=== PATIENT | male | born 1975 | race African-American/Black ===

== ENCOUNTER 2021-04-19 05:41 | Emergency (ER) | payer MEDICAID ==
[~2021-04-19] VITALS: Ht 177.8 cm; Wt 84.1 kg
[2021-04-19 05:44] VITALS: BP 157/89
[2021-04-19] MEDS ORDERED: FLUORESCEIN SODIUM 1 MG STRIP OD ONE (06:30)
[2021-04-19] MEDS ORDERED: PROPARACAINE HCL 0.5% 15 ML OPHTHALMIC SOLUTION OD ONE (06:30)
[2021-04-19] MEDS ORDERED: ERYTHROMYCIN 0.5% 3.5 GM TUBE OPHTHALMIC OINTMENT OD ONE (07:00)
[2021-04-19] MEDS ORDERED: IBUPROFEN 600 MG TABLET PO ONE (07:00)
== END 2021-04-19 07:33 | disposition home or self-care (01) ==
LOC: EMS 05:47
DX: S05.01XA Injury of conjunctiva and corneal abrasion without foreign body, right eye, initial encounter (principal); F17.210 Nicotine dependence, cigarettes, uncomplicated; X58.XXXA Exposure to other specified factors, initial encounter; Y93.89 Activity, other specified; Y92.89 Other specified places as the place of occurrence of the external cause; Y99.8 Other external cause status
CPT/HCPCS: 99284; Z7502; Z7610

== ENCOUNTER 2023-08-16 11:45 | Emergency (ER) | payer MEDICAID, OTHER ==
[~2023-08-16] VITALS: Ht 180.3 cm; Wt 90.9 kg
[2023-08-16] MEDS ORDERED: SILD20TA PO (12:37)
[2023-08-16] MEDS ORDERED: OMEP20CA12 PO (12:37)
[2023-08-16] MEDS ORDERED: ADDE10 PO (12:37)
[2023-08-16] MEDS: IBUPROFEN 600 MG TABLET PO ONE ×2 (15:15→15:32)
[2023-08-16 15:33] VITALS: BP 148/101; PULSE 148; RESP 18; TEMP 98.6
== END 2023-08-16 15:39 | disposition home or self-care (01) ==
LOC: EMS 11:45
DX: S60.042A Contusion of left ring finger without damage to nail, initial encounter (principal); Z98.84 Bariatric surgery status; X58.XXXA Exposure to other specified factors, initial encounter; Y93.89 Activity, other specified; Y92.89 Other specified places as the place of occurrence of the external cause; Y99.8 Other external cause status
CPT/HCPCS: 11740; 99284; 73140-TC; Z7502; Z7610

== ENCOUNTER 2023-08-18 11:07 | Emergency (ER) | payer OTHER ==
[~2023-08-18] VITALS: Ht 177.8 cm; Wt 90.9 kg
[~2023-08-18 11:07] MED LIST: ADDE10 PO; OMEP20CA12 PO; SILD20TA PO
[2023-08-18 11:14] VITALS: TEMP 97.9
[2023-08-18 12:06] VITALS: BP 157/112; PULSE 82; RESP 16
== END 2023-08-18 12:13 | disposition home or self-care (01) ==
LOC: EMS 11:09
DX: S60.14 Contusion of ring finger with damage to nail (principal); I10 Essential (primary) hypertension; Z98.890 Other specified postprocedural states; X58.XXXD Exposure to other specified factors, subsequent encounter
CPT/HCPCS: 99281; Z7502

== ENCOUNTER 2024-02-27 12:07 | Emergency (ER) | payer OTHER ==
[~2024-02-27] VITALS: Ht 177.8 cm; Wt 90.9 kg
[~2024-02-27 12:07] MED LIST changes: -SILD20TA PO
[2024-02-27 12:16] VITALS: BP 155/96; PULSE 102; RESP 14; TEMP 98.3
[2024-02-27] MEDS: ACETAMINOPHEN 500 MG TABLET PO ONE (13:01)
[2024-02-27] MEDS: KETOROLAC TROMETHAMINE 30 MG/ML VIAL IM ONE (13:01)
[2024-02-27] MEDS: LIDOCAINE 5% TRANSDERMAL PATCH TD ONE (13:02)
[2024-02-27] MEDS ORDERED: LIDO700A15 TP (13:11)
[2024-02-27] MEDS ORDERED: IBUP-1492 PO (13:11)
[2024-02-27] MEDS ORDERED: ACET-3385 PO (13:11)
== END 2024-02-27 13:25 | disposition home or self-care (01) ==
LOC: EMS 12:07
DX: S39.012A Strain of muscle, fascia and tendon of lower back, initial encounter (principal); I10 Essential (primary) hypertension; Z98.890 Other specified postprocedural states; X50.0XXA Overexertion from strenuous movement or load, initial encounter; Y93.89 Activity, other specified; Y92.89 Other specified places as the place of occurrence of the external cause; Y99.8 Other external cause status
CPT/HCPCS: 99283; 96372; J1885

== ENCOUNTER 2024-09-06 08:23 | Emergency (ER) | payer OTHER ==
[~2024-09-06] VITALS: Ht 177.8 cm; Wt 86.4 kg
[~2024-09-06 08:23] MED LIST changes: +ACET-3385 PO; +IBUP-1492 PO; +LIDO700A15 TP
[2024-09-06 08:31] VITALS: TEMP 98.7
[2024-09-06] MEDS ORDERED: AMPH30TA3 PO (08:32)
[2024-09-06] MEDS: PERTUSS(ACELL),DIPH,TET/PF 0.5 ML SYRINGE [ADULT] IM. ONE (09:00)
[2024-09-06 09:06] LABS: BASOPHILS % (AUTO) 0.7 % (0.0-2.0); EOSINOPHILS % (AUTO) 1.9 % (1.0-6.0); HEMATOCRIT 45.7 % (41-53); HEMOGLOBIN 14.8 g/dL (13.5-17.5); LYMPHOCYTES # (AUTO) 1.4 K/uL (1.0-4.8); LYMPHOCYTES % (AUTO) 19.9 % (22.0-44.0); MEAN CORPUSCULAR HEMOGLOBIN 27.2 pg (26.0-34.0); MEAN CORPUSCULAR HGB CONC 32.5 G/dL (31.0-37.0); MEAN CORPUSCULAR VOLUME 84 fL (80-100); MONOCYTES # (AUTO) 0.7 K/uL (0.1-1.0); MONOCYTES % (AUTO) 9.5 % (2.0-9.0); NEUTROPHILS # (AUTO) 4.9 K/uL (1.8-7.7); PLATELET COUNT (AUTO) 279 K/uL (150-450); RED BLOOD CELL COUNT(AUTO) 5.47 MIL/uL (4.50-5.90); RED CELL DISTRIBUTION WIDTH 13.4 % (11.5-14.5); WHITE BLOOD COUNT (AUTO) 7.2 K/uL (4.5-11.0)
[2024-09-06 09:18] LABS: ANION GAP 0 mmol/L (8-16); CALCIUM, TOTAL 8.5 mg/dL (8.8-10.5); CARBON DIOXIDE 34 mmol/L (22-29); CHLORIDE 106 mmol/L (98-107); GLOMERULAR FILTR. RATE CALC > 60 mL/min (>60); GLUCOSE,RANDOM 96 mg/dL (70-110); POTASSIUM 4.3 mmol/L (3.5-5.1); SODIUM SERUM 140 mmol/L (136-145); UREA NITROGEN, BLOOD 10 mg/dL (7-18)
[2024-09-06] MEDS: SULFAMETHOX/TRIMETH DS 800-160 MG/TABLET PO ONE (10:05)
[2024-09-06] MEDS: CEPHALEXIN MONOHYDRATE 500 MG CAPSULE PO ONE (10:05)
[2024-09-06 10:48] VITALS: BP 170/92; PULSE 92; RESP 20; O2SAT 98
[2024-09-06] MEDS ORDERED: SULF-261 PO (11:15)
[2024-09-06] MEDS ORDERED: CEPH-558 PO (11:15)
== END 2024-09-06 12:32 | disposition home or self-care (01) ==
LOC: EMS 08:23
DX: L08.9 Local infection of the skin and subcutaneous tissue, unspecified (principal); I10 Essential (primary) hypertension; Z98.84 Bariatric surgery status; Z79.899 Other long term (current) drug therapy
CPT/HCPCS: 80048; 85025; 90471; 90715; 99284